=== PATIENT | female | born 1940 | race Caucasian/White ===

== ENCOUNTER → 2016-07-29 | Outpatient (REF) ==
[~2016-07-29] MED LIST: ALBUTEROL0.83 MG/ML IH; ALDACTONE 100M100 MG PO; ALDACTONE 25MG25 M1 PO; ALDACTONE25 MG PO; ALDACTONE50 MG PO; AMITRIPTYLINE H50 M1 PO; AMITRIPTYLINE100 MG PO; AMITRIPTYLINE50 MG PO; ASPIRIN E.C. 8181 MG PO; ATIVAN 0.50.5 MG/TAB PO; ATROVENT I0.2 MG/1 M IH; ATROVENT INHALE14 GM IH; B & O SUPP1 SUPP.REC RC; B & O SUPPRETTE1 SU1 RC; BACITRACIN TOPIC1 TU TOP; BELLADONNA RC; BELLADONNA/OPIU1 SU1 RC; BENADRYL25 M1 PO; BENADRYL25 M2 PO; BROVANA15 MCG/2 M IH; CELEBREX 200MG200 MG PO; CIPRO 250MG TA250 MG PO; CLARINEX 5MG5 MG PO; CLARITIN 1010 MG/TAB PO; CLARITIN10 MG PO; COLACE 100100 MG/CAP PO; CORDARONE200 MG/TAB PO; DEMADEX 20MG20 M1 PO; DEMADEX 20MG20 MG PO; DEMADEX20 MG PO; DILAUDID 2MG TAB2 MG; DILAUDID 2MG TAB2 MG PO; DILAUDID 4MG TAB4 MG PO; DIPHENHYDRAMINE25 MG PO; DOXYCYCLINE 10100 MG PO; DULCOLAX10 MG RC; ELAVIL100 MG PO; FEMIRON20 MG PO; FERRIMIN 150150 M1 PO; FIBERLAX PO; FLEXERIL 1010 MG/TAB PO; FLEXERIL10 MG PO; FLONASE0.05 MG/AC NS; FOLIC ACID 11 MG/TA1 PO; FOLIC ACID 40400 MCG PO; FORADIL AERO0.012 MG IH; FUROSEMIDE; GI COCKTAIL; GLUCOPHAGE XR500 M1 PO; GLUCOPHAGE500 MG PO; GLUCOPHAGE500 MG/TAB PO; IMDUR 30MG30 MG/TAB PO; IMDUR30 MG PO; IMMUNE GLOBULIN IV; IPRATROPIUM BROM3 M1 IH; IRON325 M1 PO; ISOSORBIDE MONO30 M1 PO; ITRACONAZOLE100 MG PO; K-DUR 2020 MEQ PO; K-LOR CON PO; K-TAB10 PO; K-TAB20 PO; KLOR-CON M2020 MEQ PO; LASIX; LASIX 20MG TABL20 MG PO; LASIX 40MG TABL40 MG PO; LASIX 40MG40 MG/4 ML PO; LASIX IV; LEVAQUIN 250MG250 MG PO; LEVAQUIN 5500 MG/TA1 PO; LEVAQUIN 750MG750 MG PO; LEVOTHYROXIN0.075 MG PO; LEVOTHYROXINE0.1 MG PO; LEVOXYL0.025 MG PO; LEVOXYL0.075 MG PO; LEVOXYL0.1 MG PO; LEXAPRO 10MG10 MG PO; LIDODERM PATCH TP; LORATADINE10 MG PO; MAG-OX 400400 MG PO; MAG-OX 400400 MG/TAB PO; MAGNESIUM OXID250 MG PO; MAGNESIUM OXID500 MG PO; MAGNESIUM OXIDE; MAGNESIUM250 MG PO; METFORMIN1000 MG PO; METFORMIN500 MG PO; MILK OF MA400 MG/51 PO; MIRALAX PA17 GM/Dose PO; MIRALAX17 GM/DOSE PO; MOBIC15 MG PO; MORPHINE SULFAT30 M5 PO; MS CONTIN 330 MG/TAB PO; MS CONTIN30 MG PO; MUCINEX1200 MG PO; MULTIPLE VITAMI1 CAP PO; MYLANTA240 MG MM; NASONEX SPRAY; NASONEX SPRAY NAS; NASONEX SPRAY17 GM NAS; NASONEX SPRAY17 GM NS; NORCO 325 MG-7.1 TAB; NORCO 325 MG-7.1 TAB PO; OMNICEF 300MG300 MG PO; OPIUM RC; PACERONE200 MG PO; PAIN PUMP; PEPCID 20MG TAB20 MG PO; PERCOCET 325 MG1 TA2 PO; PERCOCET 500 MG1 TAB PO; PERFOROMIS20 MCG/2 M IH; PHENAZOPYRIDIN200 MG PO; PHENERGAN 25 TA25 MG; PHENERGAN 25 TA25 MG PO; POTASSIUM CH2 MEQ/ML PO; POTASSIUM CHLO10 ME3 PO; POTASSIUM IODID PO; POTASSIUM20 MEQ PO; PREDNISONE10 MG PO; PRIL40 PO; PRILOSEC 20MG20 MG PO; PRILOSEC10 MG PO; PROAIR HFA0.09 MG/AC IH; PROVENTIL0.09 MG/A1 IH; PULMICORT R1 MG/2 ML IH; PULMICORT0.25 MG/2 IH; PULMICORT0.5 MG/2 M IH; PULMICORT0.5 MG/21 IH; PULMICORT180 MCG/A1 IH; PULMICORT90 MCG/Act IH; PYRIDIUM200 M1 PO; ROCEPHIN VIA1 G/VIAL IJ; ROXICODONE 55 MG/TAB PO; ROXICODONE I20 MG/ML PO; RT SPIRIVA18 MCG IH; SEE INSTRUCTIONS IT; SILVADENE1% TOP; SINGULAIR 110 MG/TAB PO; SINGULAIR10 MG PO; SODIUM BICARB; SSD1% TP; SSKI1 GM/ML PO; STOOL SOFTENER100 M2 PO; SURFAK 240240 MG/CAP PO; SYNTHROID0.075 MG PO; SYNTHROID0.075 MG/T PO; See instructions IT; TAZTIA120 PO; TAZTIA180 PO; THEO-DUR 2200 MG/TAB PO; TIAZAC180 MG PO; TIROSINT150 MCG PO; TORSEMIDE20 MG PO; TYLENOL 325MG325 MG PO; ULTRAM 50MG TAB50 MG PO; VENTOLIN0.09 MG IH; VFEND 200MG200 MG PO; VITAMIN B11000 MCG/M IM; VITAMIN C BUFF500 MG PO; VITAMIN C PURE500 M1 PO; VITAMIN C500 MG PO; ZAROXOLYN 2.52.5 MG PO; ZAROXOLYN5 MG PO; ZITHROMAX Z PA250 MG PO; ZOCOR 20MG20 MG PO; ZOCOR 40MG40 MG PO; ZOCOR40 MG PO; ZOFRAN8 MG PO; [UNRECOGNIZED DRUG - OTHER]; [UNRECOGNIZED DRUG - OTHER] IM; [UNRECOGNIZED DRUG - OTHER] IV; [UNRECOGNIZED DRUG - OTHER] TP
== END ==
LOC: ZLAB.WCH 16:54
DX: Z01.89 Encounter for other specified special examinations (principal)

== ENCOUNTER → 2016-10-21 | Outpatient (REF) | LOC: ZLAB.WCH 15:15 | DX: Z01.89 Encounter for other specified special examinations (principal) ==

== ENCOUNTER 2016-11-12 06:10 | Inpatient (IN) | payer MEDICARE, BC, MEDICAID ==
[~2016-11-12] VITALS: Ht 149.9 cm; Wt 74.9 kg
[2016-11-12] VITALS (7 sets, daily range): BP systolic 115–160; BP diastolic 53–78; PULSE 37–117; TEMP 97.6–98.6
[2016-11-12 06:50] LABS: HEMATOCRIT 35.3 % (37.0-47.0); HEMOGLOBIN 10.7 g/dl (12.5-16.0); MEAN CELL VOLUME 70 fl (80.0-100.0); MEAN CORPUSCULAR HEMOGLOBIN 21 pg (27.0-31.0); MEAN CORPUSCULAR HGB CONC 30 g/dl (33.0-37.0); MEAN PLATELET VOLUME 9.3 fl (7.4-10.4); PLATELET COUNT 367 K/mm3 (130-400); RED BLOOD COUNT 5.07 M/mm3 (4.10-5.30); REDCELL DISTRIBUTION WIDTH-CV 27.5 % (11.5-14.5)
[2016-11-12 06:51] LABS: ADD PATHOLOGY DIFF REVIEW NO
[2016-11-12 06:56] LABS: PROTHROMBIN TIME 11.5 SECONDS (9.7-12.8)
[2016-11-12 06:58] LABS: PARTIAL THROMBOPLASTIN TIME 29.4 SECONDS (26.0-37.0)
[2016-11-12 07:08] LABS: ADJUSTED CALCIUM 9.2 mg/dL (8.4-10.2); ALBUMIN 3.7 gm/dL (3.5-5.0); BILIRUBIN,TOTAL 0.7 mg/dL (0.0-1.0); CREATININE, serum 1.24 mg/dL (0.52-1.25); POTASSIUM 3.1 mmol/L (3.4-5.0); TOTAL PROTEIN 7.2 gm/dL (6.4-8.2)
[2016-11-12 07:16] LABS: TROPONIN-I 0.016 ng/mL (0.000-0.034)
[2016-11-12 07:17] LABS: BAND 2 % (0-10); NEUTROPHILS 88 % (42.0-75.2); TOTAL CELLS COUNTED 100
[2016-11-12 07:18] LABS: ANISOCYTOSIS 4+; MICROCYTOSIS 1+; OVALOCYTES 1+; PLATELET ESTIMATE NORMAL (NORMAL)
[2016-11-12 07:19] LABS: HYPOCHROMIA 1+
[2016-11-13 05:15] VITALS: BP 124/51; PULSE 104; TEMP 98.1
[2016-11-13 07:08] LABS: MEAN CELL VOLUME 70 fl (80.0-100.0); MEAN CORPUSCULAR HGB CONC 30 g/dl (33.0-37.0); MEAN PLATELET VOLUME 10.2 fl (7.4-10.4); PLATELET COUNT 385 K/mm3 (130-400); RED BLOOD COUNT 5.14 M/mm3 (4.10-5.30); REDCELL DISTRIBUTION WIDTH-CV 27.7 % (11.5-14.5)
[2016-11-13 07:16] LABS: HEMATOCRIT 35.8 % (37.0-47.0); HEMOGLOBIN 10.9 g/dl (12.5-16.0); MEAN CORPUSCULAR HEMOGLOBIN 21 pg (27.0-31.0); WHITE BLOOD COUNT 47.1 K/mm3 (4.8-10.8)
[2016-11-13 07:17] LABS: ADD PATHOLOGY DIFF REVIEW NO
[2016-11-13 07:28] LABS: ADJUSTED CALCIUM 8.7 mg/dL (8.4-10.2); ALBUMIN 3.1 gm/dL (3.5-5.0); BILIRUBIN,TOTAL 0.6 mg/dL (0.0-1.0); CREATININE, serum 1.13 mg/dL (0.52-1.25); TOTAL PROTEIN 6.2 gm/dL (6.4-8.2)
[2016-11-13 07:55] LABS: POTASSIUM 2.5 mmol/L (3.4-5.0)
[2016-11-13 08:15] LABS: BAND 22 % (0-10); NEUTROPHILS 74 % (42.0-75.2); TOTAL CELLS COUNTED 100
[2016-11-13 08:16] LABS: ANISOCYTOSIS 4+; HYPOCHROMIA 1+; MICROCYTOSIS 2+; PLATELET ESTIMATE NORMAL (NORMAL)
[2016-11-13 08:17] LABS: OVALOCYTES 1+
[2016-11-13 09:46] LABS: PH 7 (5-8); URINE APPEARANCE Clear; URINE BACTERIA None Seen /hpf; URINE BILIRUBIN Negative (NEGATIVE); URINE BLOOD 1+ (NEGATIVE); URINE COLOR Yellow; URINE GLUCOSE Negative (NEGATIVE); URINE KETONE Negative (NEGATIVE); URINE UROBILINOGEN Negative (NEGATIVE)
[2016-11-13 09:47] LABS: URINE WBC 20-50 /hpf
[2016-11-13 10:44] VITALS: BP 119/57; PULSE 100; TEMP 97.9
[2016-11-13 13:52] VITALS: BP 122/53; PULSE 100; TEMP 97.7
[2016-11-13 17:14] VITALS: BP 142/64; PULSE 93; TEMP 98.3
[2016-11-13 21:28] VITALS: BP 128/68; PULSE 113; TEMP 99.2
[2016-11-14] VITALS (8 sets, daily range): BP systolic 96–147; BP diastolic 42–82; PULSE 65–112; TEMP 98–98.9
[2016-11-14 09:30] LABS: MEAN CELL VOLUME 71 fl (80.0-100.0); MEAN CORPUSCULAR HGB CONC 30 g/dl (33.0-37.0); MEAN PLATELET VOLUME 9.9 fl (7.4-10.4); PLATELET COUNT 374 K/mm3 (130-400); RED BLOOD COUNT 4.82 M/mm3 (4.10-5.30); REDCELL DISTRIBUTION WIDTH-CV 27.9 % (11.5-14.5)
[2016-11-14 09:36] LABS: CREATININE, serum 0.94 mg/dL (0.52-1.25); HEMOGLOBIN 10.2 g/dl (12.5-16.0); MEAN CORPUSCULAR HEMOGLOBIN 21 pg (27.0-31.0); WHITE BLOOD COUNT 35.7 K/mm3 (4.8-10.8)
[2016-11-14 09:41] LABS: POTASSIUM 2.6 mmol/L (3.4-5.0)
[2016-11-14 18:53] LABS: CALCIUM 6.9 mg/dL (8.4-10.2); CREATININE, serum 0.73 mg/dL (0.52-1.25)
[2016-11-14 19:03] LABS: POTASSIUM 6.3 mmol/L (3.4-5.0)
[2016-11-15 01:53] VITALS: BP 143/67; PULSE 105; TEMP 98
[2016-11-15 04:42] VITALS: BP 136/81; PULSE 52; TEMP 98.2
[2016-11-15 06:45] LABS: CALCIUM 8.3 mg/dL (8.4-10.2); CREATININE, serum 0.8 mg/dL (0.52-1.25); POTASSIUM 3.2 mmol/L (3.4-5.0)
[2016-11-15 10:00] VITALS: BP 139/55; PULSE 95; TEMP 98.1
[2016-11-15 14:00] VITALS: BP 99/69; PULSE 93; TEMP 98.3
[2016-11-15 17:32] VITALS: BP 100/56; PULSE 94; TEMP 98.6
[2016-11-15 19:56] LABS: ADJUSTED CALCIUM 8.9 mg/dL (8.4-10.2); ALBUMIN 2.4 gm/dL (3.5-5.0); BILIRUBIN,TOTAL 0.4 mg/dL (0.0-1.0); CALCIUM 7.6 mg/dL (8.4-10.2); CREATININE, serum 0.76 mg/dL (0.52-1.25); TOTAL PROTEIN 5.2 gm/dL (6.4-8.2)
[2016-11-15 21:26] VITALS: BP 121/55; PULSE 96; TEMP 98.6
[2016-11-16 01:41] VITALS: BP 98/44; BP 99/50; PULSE 91; TEMP 98.6
[2016-11-16 05:06] VITALS: BP 103/47; PULSE 91; TEMP 98
[2016-11-16 07:38] LABS: MEAN CELL VOLUME 72 fl (80.0-100.0); MEAN CORPUSCULAR HGB CONC 29 g/dl (33.0-37.0); MEAN PLATELET VOLUME 10.2 fl (7.4-10.4); PLATELET COUNT 390 K/mm3 (130-400); RED BLOOD COUNT 4.23 M/mm3 (4.10-5.30); REDCELL DISTRIBUTION WIDTH-CV 28.4 % (11.5-14.5)
[2016-11-16 07:58] LABS: ADJUSTED CALCIUM 8.9 mg/dL (8.4-10.2); ALBUMIN 2.3 gm/dL (3.5-5.0); BILIRUBIN,TOTAL 0.4 mg/dL (0.0-1.0); CALCIUM 7.5 mg/dL (8.4-10.2); CREATININE, serum 0.75 mg/dL (0.52-1.25); POTASSIUM 4.6 mmol/L (3.4-5.0)
[2016-11-16 08:21] LABS: HEMATOCRIT 30.6 % (37.0-47.0); HEMOGLOBIN 8.9 g/dl (12.5-16.0); MEAN CORPUSCULAR HEMOGLOBIN 21 pg (27.0-31.0); WHITE BLOOD COUNT 25.1 K/mm3 (4.8-10.8)
[2016-11-16 10:44] VITALS: BP 96/55; PULSE 65; TEMP 98
[2016-11-16 16:00] VITALS: BP 109/90; PULSE 111; TEMP 98.2
[2016-11-16 18:38] VITALS: BP 121/54; PULSE 95; TEMP 97.3
[2016-11-16 21:16] VITALS: BP 105/44; PULSE 98; TEMP 98.8
[2016-11-17 00:16] VITALS: BP 114/43; PULSE 55; TEMP 98.2
[2016-11-17 04:23] VITALS: BP 117/42; PULSE 91; TEMP 98.3
[2016-11-17 08:01] LABS: CALCIUM 7.5 mg/dL (8.4-10.2); CREATININE, serum 0.65 mg/dL (0.52-1.25); POTASSIUM 4.4 mmol/L (3.4-5.0)
[2016-11-17 10:46] VITALS: BP 102/50; PULSE 95; TEMP 98.2
[2016-11-17 13:19] VITALS: BP 98/47; PULSE 102; TEMP 98.2
[2016-11-17 14:09] VITALS: BP 98/47; PULSE 102; TEMP 98.2
== END 2016-11-17 17:15 | disposition left against medical advice (07) | DRG 389 ==
LOC: COL.ER 06:10 → SURG 08:29
PROVIDERS: Emergency Medicine; Internal Medicine Cardiovascular Disease; Surgery
PROC: 0D9670Z Drainage of Stomach with Drainage Device, Via Natural or Artificial Opening (ICD-10-PCS; principal; 2016-11-12)
DX: K56.60 Unspecified intestinal obstruction (principal); I50.22 Chronic systolic (congestive) heart failure; Z66 Do not resuscitate; E11.649 Type 2 diabetes mellitus with hypoglycemia without coma; I11.0 Hypertensive heart disease with heart failure; Z85.3 Personal history of malignant neoplasm of breast; E87.6 Hypokalemia; I27.2 Other secondary pulmonary hypertension; J44.9 Chronic obstructive pulmonary disease, unspecified; I25.10 Atherosclerotic heart disease of native coronary artery without angina pectoris; Z95.5 Presence of coronary angioplasty implant and graft; Z87.891 Personal history of nicotine dependence; D50.9 Iron deficiency anemia, unspecified
CPT/HCPCS: 99232-AI; 99233-AI; C9113; J1170; J1650; J2405; J3480; J7030; J7042; J7131; Q9967

== ENCOUNTER → 2016-12-02 | Outpatient (REF) ==
[2016-12-02 20:13] LABS: FERRITIN 95 ng/mL (11-264)
[2016-12-02 20:25] LABS: TOTAL IRON BINDING CAPACITY 288 ug/dL (265-497)
== END ==
LOC: ZLAB.WCH 18:22
PROVIDERS: Internal Medicine
DX: Z01.89 Encounter for other specified special examinations (principal)

== ENCOUNTER 2016-12-03 11:22 | Outpatient (CLI) | payer MEDICARE, BC, MEDICAID ==
[2008-10-16 04:17] VITALS: BP 188/76
[~2016-12-03] VITALS: Ht 149.9 cm; Wt 66.0 kg
[2016-12-03 13:02] VITALS: BP 101/46; PULSE 90; TEMP 97.7
== END 2016-12-03 14:00 ==
LOC: EUO 11:22
DX: D72.829 Elevated white blood cell count, unspecified (principal)
CPT/HCPCS: C1751; C1894

== ENCOUNTER → 2016-12-12 | Outpatient (REF) | LOC: ZLAB.WCH 08:48 | DX: Z01.89 Encounter for other specified special examinations (principal) ==

== ENCOUNTER → 2016-12-15 | Outpatient (REF) | LOC: ZLAB.WCH 08:51 | DX: Z01.89 Encounter for other specified special examinations (principal) ==

== ENCOUNTER → 2016-12-30 | Outpatient (REF) | LOC: ZAIV 06:10 | DX: Z01.89 Encounter for other specified special examinations (principal) ==

== ENCOUNTER → 2017-01-18 | Outpatient (REF) | LOC: ZLAB.WCH 10:16 | DX: Z01.89 Encounter for other specified special examinations (principal) ==